=== PATIENT | female | born 1970 | race Hispanic/Latino ===

== ENCOUNTER 2018-02-08 13:22 | Emergency (ER) | payer OTHER ==
[~2018-02-08 13:22] MED LIST: MIDOL CRAMP FO200 MG PO; PHENERGAN25 M1 PO
[2018-02-08] MEDS ORDERED: MELOXICAM15 M1 PO (15:52)
--- NOTE | 2018-02-08 15:52 | ED UPPER/LOWER EXTREMITY COMPL ---
History of Present Illness General Chief Complaint: Hand or Wrist Injury Stated Complaint: BILATERAL WRIST PAIN/NUMB, CARPAL TUNNEL PROBLEMS? Source: patient Exam Limitations: no limitations Vital Signs & Intake/Output Vital Signs & Intake/Output Vital Signs Date Time Temp Pulse Resp B/P B/P Pulse O2 O2 Flow FiO2 Mean Ox Delivery Rate 02/08 1601 76 126/88 02/08 1328 97.0 104 17 138/91 97 Room Air Allergies Coded Allergies: NO KNOWN ALLERGIES (10/11/14) Uncoded Allergies: Allergy Other (09/11/17) UNKNOWN Med Allergies (09/11/17) UNNONWN Reconcile Medications Ibuprofen (Midol Cramp Formula) 200 MG TAB 2 TAB PO PRN PAIN (Reported) Meloxicam 15 MG TABLET 1 TAB PO DAILY pain Promethazine Hydrochloride (Phenergan) 25 MG TAB 1 TAB PO TID PRN NAUSEA Triage Note: PT STATES HAS ONGOING PAIN FROM BILATERAL CARPEL TUNNEL SYNDROME. STATES IS HAVING TROUBLE GETTING APPTS FOR CHECK UPS AND SURGERY TO CORRECT. WAS TOLD TO GO TO ED FOR PAIN CONTROL. Triage Nurses Notes Reviewed? yes HPI: Primarily Iranian-speaking 47-year-old female with history of carpal tunnel in the left wrist presents emergency department complaining of right wrist pain. Patient states she is scheduled to have surgery on her left wrist but has not heard from the office in 2 weeks. States now her right wrist is also hurting and would like it to be evaluated for carpal tunnel. She called the office a few times but they have not gotten back to her in 2 weeks. She denies any numbness or tingling. She has not taken any for the pain. No falls injury or trauma to the wrist. Past History Travel History Traveled to [place] past 21 day No Medical History Any Pertinent Medical History? none Psychiatric: anxiety Surgical History Surgical History: none Psychosocial History What is your primary language Iranian Family History Hx Contributory? No Review of Systems Review of Systems Constitutional: Reports: no symptoms. EENTM: Reports: no symptoms. Respiratory: Reports: no symptoms. Cardiovascular: Reports: no symptoms. Musculoskeletal: Reports: see HPI. Skin: Reports: no symptoms. Neurological/Psychological: Reports: no symptoms. All Other Systems: Reviewed and Negative Physical Exam Physical Exam General Appearance: well developed/nourished, no apparent distress Head: atraumatic Eyes: Bilateral: PERRL, EOMI. Ears, Nose, Throat: normal pharynx, normal ENT inspection, hearing grossly normal Neck: normal inspection, supple Back: normal inspection Hand Left: see right hand documentation Hand Right: mild tenderness over liz wrists, neurovascularly intact, radial 2+ b /l. Normal ROM. cosmetic surgeon strength 4/5 bilaterally. Skin: intact, normal color, warm/dry Progress Differential Diagnosis: compartment syndrome, contusion, dislocation, sprain, tendon injury, carpel tunnel Plan of Care: Orders Procedure Date/time Status Durable Medical Equipment 02/08 1553 Active Comments: 47-year-old female with known carpal tunnel of her left wrist scheduled to have surgery presents with right wrist pain. Neurovascular intact on exam. No numbness or tingling. No mechanism for fracture. No x-rays will be done. This is not consistent with compartment syndrome. This is likely underlying carpal tunnel. Encourage her to follow-up with her primary care doctor and the doctor performing her surgery. The will give Mobic for pain to take as needed. Will also get a Velcro wrist splint. Return with any new or worsening symptoms. Departure Departure Time of Disposition: 1550 Disposition: HOME OR SELF CARE Condition: Stable Clinical Impression Primary Impression: Bilateral wrist pain Referrals: Kaykay Riggs APRN (PCP/Family) Additional Instructions: Follow up with your doctor. Take medications as prescribed. Return to ed with new or worsening symptoms. Departure Forms: Customer Survey General Discharge Information Prescriptions: Current Visit Scripts Meloxicam 1 TAB PO DAILY #30 TAB
[2018-02-08 16:01] VITALS: BP 126/88
== END 2018-02-08 16:01 ==
LOC: ERH 13:22
DX: M25.531 Pain in right wrist (principal); M25.532 Pain in left wrist

== ENCOUNTER → 2018-04-15 | Day surgery (SDC) | payer OTHER ==
[~2018-04-15] MED LIST changes: +MELOXICAM15 M1 PO
--- NOTE | 2018-04-15 14:32 | Operative Report ---
Operative/Inv Procedure Report Surgery Date: 04/15/18 Name of Procedure: Carpal tunnel release left Pre-Operative Diagnosis: Carpal tunnel left Post-Operative Diagnosis: Carpal tunnel left Estimated Blood Loss: none Surgeon/Pest Control Worker: Chico Grant MD Anesthesia: moderate sedation Operative/Procedure Note Note: Patient was counseled extensively in regards to the procedure the alternatives the risks and expected outcomes as relates to her request for surgical intervention to treat symptomatic left-sided carpal tunnel syndrome. No guarantees were given in regards to results we talked about the risk which include infection bleeding pain numbness sensitive scar permanent injury to the nerve. Failure to achieve desired results was discussed and accepted through conversation with the patient and also with the use of an dress fitter as needed. She signed informed consent. She was taken to the operating placed supine on the table Venodyne boots were placed intravenous sedation was given and local anesthesia was injected in the left palm along a marked incision line. After sterile prep and drape and tourniquet placement on the forearm incision was made in longitudinal fashion through the skin subcutaneous tissue and palmar fascia. The transverse carpal ligament was opened under direct vision and no other pathology was seen. Wound was irrigated and closed.
== END ==
LOC: STS 03:32
DX: G56.02 Carpal tunnel syndrome, left upper limb (principal)
CPT/HCPCS: J0131; J0690; J2250